=== PATIENT | female | born 1980 | race Two or more races ===

== ENCOUNTER 2019-02-19 11:16 | Emergency (ER) | payer MEDICAID ==
[~2019-02-19] VITALS: Ht 162.6 cm; Wt 93.7 kg
[2019-02-19 11:34] VITALS: BP 118/69; PULSE 89; RESP 20; Ht 162.6 cm; Wt 93.7 kg
--- NOTE | 2019-02-19 12:10 | ERD ---
ER Documentation Chief Complaint Chief Complaint c/o moderate vag bleed "with clots" started this AM, 6 weeks HPI 38-year-old female, status post IVF of 2 embryos, presents to the emergency department, complaining of acute onset of moderate vaginal bleeding since this morning. The patient was seen by her OB on Wednesday and according to the patient and her , the ultrasound revealed a single intrauterine at 6 weeks with + FHT. ROS All systems reviewed and are negative except as per history of present illness. PMhx/Soc Medical and Surgical Hx: pt denies Medical Hx, pt denies Surgical Hx Hx Alcohol Use: No Hx Substance Use: No Hx Tobacco Use: No Smoking Status: Never smoker Physical Exam Vitals Vital Signs Date Temp Pulse Resp B/P (MAP) Pulse Ox O2 O2 Flow FiO2 Time Delivery Rate 02/19/19 97.7 89 20 118/69 99 11:34 (85) Physical Exam Const: No acute distress Head: Atraumatic Eyes: Normal Conjunctiva ENT: Normal External Ears, Nose and Mouth. Neck: Full range of motion. No meningismus. Resp: Clear to auscultation bilaterally Cardio: Regular rate and rhythm, no murmurs Abd: Soft, non tender, non distended. Normal bowel sounds Skin: No petechiae or rashes Back: No midline or flank tenderness Ext: No cyanosis, or edema Neur: Awake and alert Psych: Normal Mood and Affect Result Diagram: 02/19/19 1250 Results 24 hrs Laboratory Tests Test 02/19/19 12:50 White Blood Count 10.8 10^3/ul Red Blood Count 4.01 10^6/ul Hemoglobin 12.1 g/dl Hematocrit 36.3 % Mean Corpuscular Volume 90.5 fl Mean Corpuscular Hemoglobin 30.2 pg Mean Corpuscular Hemoglobin Concent 33.3 g/dl Red Cell Distribution Width 13.6 % Platelet Count 275 10^3/UL Mean Platelet Volume 10.5 fl Immature Granulocytes % 0.800 % Neutrophils % 66.6 % Lymphocytes % 25.4 % Monocytes % 5.0 % Eosinophils % 1.7 % Basophils % 0.5 % Nucleated Red Blood Cells % 0.0 /100WBC Immature Granulocytes # 0.090 10^3/ul Neutrophils # 7.2 10^3/ul Lymphocytes # 2.7 10^3/ul Monocytes # 0.5 10^3/ul Eosinophils # 0.2 10^3/ul Basophils # 0.1 10^3/ul Nucleated Red Blood Cells # 0.0 10^3/ul Urine Color YELLOW Urine Clarity SLIGHTLY CLOUDY Urine pH 5.0 Urine Specific [place] 1.025 Urine Ketones 1+ mg/dL Urine Nitrite NEGATIVE mg/dL Urine Bilirubin NEGATIVE mg/dL Urine Urobilinogen NEGATIVE mg/dL Urine Leukocyte Esterase NEGATIVE Funmi/ul Urine Microscopic RBC > 182 /HPF Urine Microscopic WBC 1 /HPF Urine Mucus FEW /HPF Urine Hemoglobin 3+ mg/dL Urine Glucose NEGATIVE mg/dL Urine Total Protein NEGATIVE mg/dl Beta HCG, Quantitative 8364.1 mIU/ml Patient: OMAR HAMMOND : 1980 Age: 38 Sex: F MR #: [id number] DOS: 02/19/19 1207 Ordering MD: DALTON TRACY MD Location: [facility] Room/Bed: PROCEDURE: US OB. CLINICAL INDICATION: Vaginal bleeding TECHNIQUE: Transabdominal and transvaginal pelvic ultrasound are performed. COMPARISON: None. FINDINGS: The uterus is heterogeneous in echogenicity and anteverted in orientation. The uterus measures 9.7 x 5.2 x 6.7 cm.. Multiple fibroids are identified. The largest fibroid is in the fundus and measures 2.9 cm. A thickened heterogeneous endometrium is seen measuring 1.7 cm. No intrauterine is noted. The endometrial lining is slightly hypervascular. Cervix is normal appearance. Both ovaries are identified, and normal in size, shape, and appearance. No complex adnexal masses are seen.. Normal Doppler flow is noted of both ovaries. The right ovary measures 3.0 x 1.2 x 2.2 cm, and the left ovary measures 3.0 x 1.8 x 2.6 cm There is trace free fluid in the pelvis IMPRESSION: 1. Thickened slightly hypervascular endometrium. No intrauterine seen. The differential for this appearance would include early IUP, missed , or unrecognized ectopic. Correlation with serial beta HCG level and a follow-up ultrasound is recommended. 2. Heterogeneous uterus with multiple fibroids. 3. Ovaries unremarkable. No complex adnexal masses. 4. Physiologic free fluid in the pelvis RPTAT: HH .Abel Mcdaniel MD, MD Date Time Electronically viewed and signed by .Abel Mcdaniel MD, MD on 02/19/2019 13:18 .W/ CC: DALTON TRACY MD Procedures/MDM Vital signs stable, Physical exam unremarkable. Differential diagnosis include but not limited to: UTI, threatening , incomplete versus complete , ectopic , physiologic implantation bleeding, molar . Physical examination and clinical presentation most likely consistent with threatening . During the ED course the patient remained hemodynamically stable and asymptomatic. Results and clinical impression discussed with patient who agrees with management. The patient is stable to be treated outpatient and will be discharged home with close monitoring and follow-up in 2 days with her primary physician. Bed rest and pelvic rest recommended until further medical evaluation. The patient was instructed regarding the outcomes and the potential complications like severe bleeding and . If the patient presents severe bleeding or pain, she was instructed to return to the hospital immediately. Disclaimer: Inadvertent spelling and grammatical errors are likely due to [employer]/dictation software use and do not reflect on the overall quality of patient care. Also, please note that the electronic time recorded on this note does not necessarily reflect the actual time of the patient encounter. Is here in Departure Diagnosis: Primary Impression: Vaginal bleeding in patient at less than 20 weeks gestation Additional Impression: History of in vitro fertilization Condition: Stable Patient Instructions: Bleeding During Early Additional Instructions: Thank you very much for allowing us to participate in your care. Your health and safety is our top priority at [facility]. Call your primary care doctor TOMORROW for an appointment during the next 2-4 days and bring all the information and medications prescribed. Have prescriptions filled and follow precisely the directions on the label. If the symptoms get worse and your provider is unavailable, return to the Emergency Department immediately. DALTON TRACY MD Feb 19, 2019 12:10
== END 2019-02-19 13:53 | disposition home or self-care (01) ==
LOC: FTE 11:16
DX: O20.9 Hemorrhage in early pregnancy, unspecified (principal); Z3A.01 Less than 8 weeks gestation of pregnancy; Z98.870 Personal history of in utero procedure during pregnancy
CPT/HCPCS: 36415; 76801; 76817; 81001; 84702; 85025; Z7502